=== PATIENT | female | born 1980 | race African-American/Black ===

== ENCOUNTER 2017-02-07 20:37 | Emergency (ER) | payer OTHER ==
[2017-02-07 20:43] VITALS: BP 119/75; PULSE 85; TEMP 97.9; BMI 39.8
--- NOTE | 2017-02-07 21:26 | PDOC ---
History of Present Illness <Pratima Paul - Last Filed: 02/07/17 23:29> - History of Present Illness Initial Comments: 02/07/17 23:52 CC: "I need you to check out my blood for clots" Patient is a 36 y.o. female with a PMH of PE (2015) and morbid obesity who presents to our facility with a c/o of R sided mid clavicular pain (pressure, 10 /10) and R back pain (localized over the area of the trapezius muscle, pressure- like 10/10). Patient notes this pain is similar to the pain she experienced during her PE in 2016. <Gloria Helms - Last Filed: 02/07/17 23:58> - General Chief Complaint: Back Pain Stated Complaint: BACK PAIN Time Seen by Provider: 02/07/17 21:19 Past History <Pratima Paul - Last Filed: 02/07/17 23:29> - Past Medical History Anemia: Yes Asthma: No Cancer: No Cardiac Disorders: No Diabetes: No HTN: No Seizures: No Thyroid Disease: No Other medical history: Pulmonary [place] 10/2015 - Psycho/Social/Smoking Cessation Hx Anxiety: No Suicidal Ideation: No Smoking History: Never smoked Have you smoked in the past 12 months: Yes If you are a former smoker, when did you quit?: 2016 Hx Alcohol Use: No Drug/Substance Use Hx: No Substance Use Type: None Hx Substance Use Treatment: No <Gloria Helms - Last Filed: 02/07/17 23:58> - Past Medical History Allergies/Adverse Reactions: Allergies Allergy/AdvReac Type Severity Reaction Status Date / Time No Known Allergies Allergy Verified 02/07/17 20:42 Home Medications: Ambulatory Orders Warfarin Na [Coumadin -] 10 mg GT DAILY #20 tablet 12/12/15 Review of Systems - Review of Systems Cardiac (ROS): Yes: Chest Pain All Other Systems: Reviewed and Negative <Glorai Helms - Last Filed: 02/07/17 23:58> *Physical Exam - Vital Signs Last Vital Signs Temp Pulse Resp BP Pulse Ox 97.9 F 85 18 119/75 98 02/07/17 20:38 02/07/17 20:38 02/07/17 20:38 02/07/17 20:38 02/07/17 20:38 <Pratima Paul - Last Filed: 02/07/17 23:29> - Vital Signs Last Vital Signs Temp Pulse Resp BP Pulse Ox 97.9 F 85 18 119/75 98 02/07/17 20:38 02/07/17 20:38 02/07/17 20:38 02/07/17 20:38 02/07/17 20:38 <Gloria Helms - Last Filed: 02/07/17 23:58> Heart Score/ECG Review #1 02/07/17 23:29 Normal sinus rhythm at 76 Abnormal ECG but no changes since 05/2016 Abnormal with deeply inverted T waves <Pratima Paul - Last Filed: 02/07/17 23:29> ED Treatment Course - LABORATORY CBC & Chemistry Diagram: 02/07/17 21:40 02/07/17 21:40 - ADDITIONAL ORDERS Additional order review: Laboratory Results 02/07/17 02/07/17 02/07/17 21:49 21:40 21:40 INR 3.00 H D-Dimer Sodium 137 Potassium 4.2 Chloride 103 Carbon Dioxide 29 Anion Gap 5 L BUN 10 Creatinine 0.8 Random Glucose 87 Calcium 8.3 L Serum , Qual Negative 02/07/17 21:40 INR D-Dimer < 200 Sodium Potassium Chloride Carbon Dioxide Anion Gap BUN Creatinine Random Glucose Calcium Serum , Qual 02/07/17 21:40 RBC 4.51 MCV 85.3 MCHC 32.8 RDW 15.2 MPV 9.5 Neutrophils % 39.5 L Lymphocytes % 45.0 H Monocytes % 11.5 H Eosinophils % 2.8 Basophils % 1.2 <Pratima Paul - Last Filed: 02/07/17 23:29> - LABORATORY CBC & Chemistry Diagram: 02/07/17 21:40 02/07/17 21:40 <Gloria Helms - Last Filed: 02/07/17 23:58> Medical Decision Making - Medical Decision Making 02/07/17 23:56 As patient has a h/o PE, D-Dimer was ordered as was INR (patient on Coumadin). As D-Dimer was negative however patient had a number of risk factors for PE including a h/o of PE and morbid obesity, however as her PE was not associated with , CXR was ordered prior to CTA. Patient was signed out to Dr. Fierro. <Golria Helms - Last Filed: 02/07/17 23:58>
[2017-02-07 21:52] LABS: BASOPHIL 1.2 % (0-2.0); EOSINOPHIL 2.8 % (0-4.5); MCHC 32.8 g/dl (32.0-36.0); MEAN CELL VOLUME 85.3 fl (80-96); MEAN PLT VOLUME 9.5 fl (7.5-11.1); NEUTROPHILS 39.5 % (42.8-82.8); PLATELET COUNT 171 K/MM3 (134-434); RDW 15.2 % (11.6-15.6); WHITE BLOOD COUNT 3.7 K/mm3 (4.0-10.0)
[2017-02-07 22:07] LABS: ANION GAP 5 (8-16); CALCIUM 8.3 mg/dL (8.5-10.1); CO2 29 mmol/L (21-32); CREATININE 0.8 mg/dL (0.55-1.02); GLUCOSE,RANDOM 87 mg/dL (74-106)
[2017-02-07 23:25] LABS: PROTHROMBIN TIME (PATIENT) 33.8 SEC (9.98-11.88)
--- NOTE | 2017-02-07 23:53 | PDOC ---
*Physical Exam - Vital Signs Last Vital Signs Temp Pulse Resp BP Pulse Ox 97.9 F 85 18 119/75 98 02/07/17 20:38 02/07/17 20:38 02/07/17 20:38 02/07/17 20:38 02/07/17 20:38 - Physical Exam Comments: 02/08/17 00:46 General Appearance: Nourished, Obese. No Apparent Distress HEENT: No Pharyngeal Erythema, Tonsillar Exudate, Tonsillar Erythema Respiratory/Chest: Lungs Clear, Normal Breath Sounds. No Crackles, Rales, Rhonchi, Wheezing Cardiovascular: Regular Rhythm, Regular Rate. No Murmur, Gallop/S3, Gallop/S4 Gastrointestinal/Abdominal: Normal Bowel Sounds, Soft. No Guarding, Rebound, Tenderness Integumentary: Normal Color, Dry, Warm Neurologic: Fully Oriented, Alert, Normal Mood/Affect, Normal Response <Dontae Fierro - Last Filed: 02/08/17 00:40> - Vital Signs Last Vital Signs Temp Pulse Resp BP Pulse Ox 97.9 F 85 18 119/75 98 02/07/17 20:38 02/07/17 20:38 02/07/17 20:38 02/07/17 20:38 02/07/17 20:38 <Isamar Alexandre - Last Filed: 02/08/17 02:31> ED Treatment Course - LABORATORY CBC & Chemistry Diagram: 02/07/17 21:40 02/07/17 21:40 - ADDITIONAL ORDERS Additional order review: Laboratory Results 02/07/17 02/07/17 02/07/17 21:49 21:40 21:40 INR 3.00 H D-Dimer Sodium 137 Potassium 4.2 Chloride 103 Carbon Dioxide 29 Anion Gap 5 L BUN 10 Creatinine 0.8 Random Glucose 87 Calcium 8.3 L Serum , Qual Negative 02/07/17 21:40 INR D-Dimer < 200 Sodium Potassium Chloride Carbon Dioxide Anion Gap BUN Creatinine Random Glucose Calcium Serum , Qual 02/07/17 21:40 RBC 4.51 MCV 85.3 MCHC 32.8 RDW 15.2 MPV 9.5 Neutrophils % 39.5 L Lymphocytes % 45.0 H Monocytes % 11.5 H Eosinophils % 2.8 Basophils % 1.2 <Dontae Fierro - Last Filed: 02/08/17 00:40> - LABORATORY CBC & Chemistry Diagram: 02/07/17 21:40 02/07/17 21:40 - ADDITIONAL ORDERS Additional order review: Laboratory Results 02/07/17 02/07/17 02/07/17 21:49 21:40 21:40 INR 3.00 H D-Dimer Sodium 137 Potassium 4.2 Chloride 103 Carbon Dioxide 29 Anion Gap 5 L BUN 10 Creatinine 0.8 Random Glucose 87 Calcium 8.3 L Serum , Qual Negative 02/07/17 21:40 INR D-Dimer < 200 Sodium Potassium Chloride Carbon Dioxide Anion Gap BUN Creatinine Random Glucose Calcium Serum , Qual 02/07/17 21:40 RBC 4.51 MCV 85.3 MCHC 32.8 RDW 15.2 MPV 9.5 Neutrophils % 39.5 L Lymphocytes % 45.0 H Monocytes % 11.5 H Eosinophils % 2.8 Basophils % 1.2 <Isamar Alexandre - Last Filed: 02/08/17 02:31> Progress Note - Progress Note Progress Note: Received sign-out from Dr. eHlms. Patient is a stable 36 year old female with a history of PE in 2016 who presents with chest pain similar to her previous presentation with PE. Patient reports upper right chest pain and upper right back pain similar to the pain she presented with one year ago with her previous PE. Work up has been negative thus far with a negative d-dimer. Patient is on warfarin and IRN is pending. Patient to undergo chest radiograph for evaluation given multiple risk factors. If chest radiograph is negative, the patient can be discharged home. <Dontae Fierro - Last Filed: 02/08/17 00:40> Medical Decision Making - Medical Decision Making 02/08/17 00:44 Patient's INR is 3 which is expected on Warfarin. Patient's chest radiograph has no obvious signs of PE or pneumonia and with a negative d-dimer we feel comfortable with discharging her home with follow up with a PCP. We discussed the results with the patient and she is agreeable with the plan. <Dontae Fierro - Last Filed: 02/08/17 00:40> *DC/Admit/Observation/Transfer - Attestations Physician Attestion: 02/08/17 00:44 I, Dr. Dontae Fierro, attest that this document has been prepared under my direction and personally reviewed by me in its entirety. I further attest, that it accurately reflects all work, treatment, procedures and medical decision -making performed by me. <Dontae Fierro - Last Filed: 02/08/17 00:40> <Isamar Alexandre - Last Filed: 02/08/17 02:31> Diagnosis at time of Disposition: Back pain Qualifiers: Back pain location: back pain in other location Chronicity: unspecified Qualified Code(s): M54.89 - Other dorsalgia - Discharge Dispostion Disposition: HOME Condition at time of disposition: Improved - Referrals Referrals: Hussein Gonsalez MD [Staff Physician] - Molly Campbell [Staff Physician] - Sal Ribera MD [Staff Physician] - - Patient Instructions Printed Discharge Instructions: DI for Thoracic Back Pain Additional Instructions: Please return to the ER if you experience worsening symptoms including worsening chest pain, shortness of breath, fevers, or chills. Please call one of provided numbers to establish care with a primary care provider and follow up with them regarding your ER visit. Attending Attestation - Resident Resident Name: Gloria Helms - HPI HPI: 02/08/17 02:26 36 yo female has had shortness of breath with exertion. She has a h/o PE in November 2015 and is on coumadin. Not hypoxic ,no tachycardia ,no fever - Physicial Exam PE: 02/08/17 02:27 tall 36 yo female with sob .No resp distress,no tachypnea HEENT wnl lungs cta b/l cvr [id number] abd protuberant,soft ext no swelling neuro axox3, ambulatory - Medical Decision Making 02/08/17 02:29 preg test negative ,cxr no infiltrates, negative d dimer,labs wnl. ekh nsr. INR=3.00 /pt discharged home <Isamar Alexandre - Last Filed: 02/08/17 02:31>
--- NOTE | 2017-02-08 10:31 | EKG ---
Test Reason : Blood Pressure : / mmHG Vent. Rate : 076 BPM Atrial Rate : 076 BPM P-R Int : 150 ms QRS Dur : 082 ms QT Int : 388 ms P-R-T Axes : 040 026 023 degrees QTc Int : 436 ms NORMAL SINUS RHYTHM CANNOT RULE OUT ANTERIOR INFARCT , AGE UNDETERMINED ABNORMAL ECG WHEN COMPARED WITH ECG OF 20-MAY-2016 11:32, NO SIGNIFICANT CHANGE WAS FOUND Confirmed by ARLETTE CERVANTES MD ([id number]) on 02/08/2017 10:31:32 AM Referred By: Confirmed By:ARLETTE CERVANTES MD
== END 2017-02-08 00:52 | disposition home or self-care (01) ==
LOC: JER 20:37
DX: M54.89 Other dorsalgia (principal); Z86.711 Personal history of pulmonary embolism; Z79.01 Long term (current) use of anticoagulants
CPT/HCPCS: 36415; 71020-TC; 80048; 84703; 85025; 85379; 85610; 93005; 93010; 99282-25

== ENCOUNTER 2017-03-13 20:02 | Emergency (ER) | payer OTHER ==
[2017-03-13 20:11] VITALS: BP 132/89; PULSE 102; TEMP 99.5; BMI 40.4
[2017-03-13] MEDS ORDERED: METOCLOPRAMIDE HCL INJECTION 10 MG/2 ML VIAL ONE (20:28)
--- NOTE | 2017-03-13 20:28 | PDOC ---
History of Present Illness - General History Source: Patient Exam Limitations: No Limitations - History of Present Illness Initial Comments: 03/13/17 23:22 36-year-old female with a history of migraines, vertical resents to the emergency department complaining of a frontal bandlike 8/10 intermittent discomfort with light sensitivity but denies nausea/vomiting, fever/chills, nausea sensitivity, neck pains, back pains, chest pain, shortness of breath, abdominal pains, flank pains, extremity numbness or tingling sensation. Patient states the pain is alleviated at rest in a dark room and there are no exacerbating factors. Patient says this is not her worst migraine episode and she has not tried any [id number] medication to alleviate her pain. No recent travels Timing/Duration: reports: other (1 day) Associated Symptoms: reports: denies symptoms <Raisa Lee - Last Filed: 03/13/17 23:22> <Nayeli Wall - Last Filed: 03/15/17 00:48> - General Chief Complaint: Headache Stated Complaint: FEVER/HEADACHE/NUMBNESS IN ARM Time Seen by Provider: 03/13/17 20:23 Past History - Past Medical History Anemia: Yes Asthma: No Cancer: No Cardiac Disorders: No Diabetes: No HTN: No Seizures: No Thyroid Disease: No Other medical history: PE, vertigo - Psycho/Social/Smoking Cessation Hx Anxiety: No Suicidal Ideation: No Smoking History: Never smoked Have you smoked in the past 12 months: No If you are a former smoker, when did you quit?: 2016 Information on smoking cessation initiated: No Hx Alcohol Use: No Drug/Substance Use Hx: No Substance Use Type: None Hx Substance Use Treatment: No <Raisa Lee - Last Filed: 03/13/17 23:22> <Nayeli Wall - Last Filed: 03/15/17 00:48> - Past Medical History Allergies/Adverse Reactions: Allergies Allergy/AdvReac Type Severity Reaction Status Date / Time No Known Allergies Allergy Verified 03/13/17 20:07 Home Medications: Ambulatory Orders Warfarin Na [Coumadin -] 10 mg PO DAILY 03/14/17 Review of Systems - Review of Systems Able to Perform ROS?: Yes Comments:: 03/13/17 23:22 CONSTITUTIONAL: Absent: fever, chills, diaphoresis, generalized weakness, malaise, loss of appetite HEENT: Absent: rhinorrhea, nasal congestion, throat pain, throat swelling, difficulty swallowing, mouth swelling, ear pain, eye pain, visual Changes CARDIOVASCULAR: Absent: chest pain, loss of consciousness, palpitations, irregular heart rate, peripheral edema RESPIRATORY: Absent: cough, shortness of breath, dyspnea with exertion, orthopnea, wheezing, stridor, hemoptysis GASTROINTESTINAL: Absent: abdominal pain, abdominal distension, nausea, vomiting, diarrhea, constipation, melena, hematochezia GENITOURINARY: Absent: dysuria, frequency, urgency, hesitancy, hematuria, flank pain, genital pain MUSCULOSKELETAL: Absent: myalgia, arthralgia, joint swelling SKIN: Absent: rash, itching, pallor HEMATOLOGIC/IMMUNOLOGIC: Absent: easy bleeding, easy bruising, lymphadenopathy, frequent infections ENDOCRINE: Absent: unexplained weight gain, unexplained weight loss, heat intolerance, cold intolerance NEUROLOGIC: Absent: headache, focal weakness or paresthesias, dizziness, unsteady gait, seizure, mental status changes, bladder or bowel incontinence PSYCHIATRIC: Absent: anxiety, depression, suicidal or homicidal ideation, hallucinations. Is the patient limited Togolese proficient: No <Raisa Lee - Last Filed: 03/13/17 23:22> *Physical Exam - Vital Signs Last Vital Signs Temp Pulse Resp BP Pulse Ox 99.5 F 102 H 20 132/89 97 03/13/17 20:08 03/13/17 20:08 03/13/17 20:08 03/13/17 20:08 03/13/17 20:08 - Physical Exam Comments: 03/13/17 23:22 GENERAL: Well developed, well nourished. Awake and alert. No acute distress. HEENT: Normocephalic, atraumatic. PERRLA, EOMI. No conjunctival pallor. Sclera are non- icteric. Moist mucous membranes. Oropharynx is clear. NECK: Supple. Full ROM. No JVD. Carotid pulses 2+ and symmetric, without bruits. No thyromegaly. No lymphadenopathy. CARDIOVASCULAR: Regular rate and rhythm. No murmurs, rubs, or gallops. Distal pulses are 2+ and symmetric. PULMONARY: No evidence of respiratory distress. Lungs clear to auscultation bilaterally. No wheezing, rales or rhonchi. ABDOMINAL: Soft. Non-tender. Non-distended. No rebound or guarding. No organomegaly. Normoactive bowel sounds. MUSCULOSKELETAL Normal range of motion at all joints. No bony deformities or tenderness. No CVA tenderness. EXTREMITIES: No cyanosis. No clubbing. No edema. No calf tenderness. SKIN: Warm and dry. Normal capillary refill. No rashes. No jaundice. NEUROLOGICAL: Alert, awake, appropriate. Cranial nerves 2-12 intact. No deficits to light touch and temperature in face, upper extremities and lower extremities. No motor deficits in the in face, upper extremities and lower extremities. Normoreflexic in the upper and lower extremities. Normal speech. Toes are down- going bilaterally. Gait is normal without ataxia. PSYCHIATRIC: Cooperative. Good eye contact. Appropriate mood and affect. <Raisa Lee - Last Filed: 03/13/17 23:22> - Vital Signs Last Vital Signs Temp Pulse Resp BP Pulse Ox 99.5 F 102 H 20 132/89 97 03/13/17 20:08 03/13/17 20:08 03/13/17 20:08 03/13/17 20:08 03/13/17 20:08 <Nayeli Wall - Last Filed: 03/15/17 00:48> ED Treatment Course - LABORATORY CBC & Chemistry Diagram: 03/13/17 20:25 03/13/17 20:25 <Raisa Lee - Last Filed: 03/13/17 23:22> - LABORATORY CBC & Chemistry Diagram: 03/13/17 20:25 03/13/17 20:25 - ADDITIONAL ORDERS Additional order review: 03/13/17 20:25 RBC 4.25 MCV 84.9 MCHC 33.2 RDW 15.3 MPV 8.6 Neutrophils % 61.5 D Lymphocytes % 26.4 D Monocytes % 10.7 H Eosinophils % 0.9 Basophils % 0.5 - Medications Given in the ED: ED Medications Discontinued Medications Generic Name Dose Route Start Last Admin Trade Name Freq PRN Reason Stop Dose Admin Sodium Chloride 1,000 mls @ 1,000 mls/hr 03/13/17 20:29 03/13/17 20:49 Normal Saline - IV 03/13/17 21:28 1,000 mls/hr ASDIR STA Administration Metoclopramide HCl 10 mg 03/13/17 20:29 03/13/17 20:49 Reglan Injection - IVPB 03/13/17 20:30 10 mg ONCE ONE Administration <Nayeli Wall - Last Filed: 03/15/17 00:48> *DC/Admit/Observation/Transfer - Discharge Dispostion Admit: No <Raisa Lee - Last Filed: 03/13/17 23:22> - Attestations Physician Attestion: I reviewed the case with the mid-level practitioner and agree with the mid- level practitioner's assessment, diagnosis and disposition. <Nayeli Wall - Last Filed: 03/15/17 00:48> Diagnosis at time of Disposition: Headache Qualifiers: Headache type: tension-type Headache chronicity pattern: acute headache Intractability: not intractable Qualified Code(s): G44.209 - Tension-type headache, unspecified, not intractable - Discharge Dispostion Disposition: HOME Condition at time of disposition: Stable - Referrals Referrals: Frandy Villatoro MD [Primary Care Provider] - Hussein Jamil MD [Staff Physician] - - Patient Instructions Printed Discharge Instructions: DI for Headache Additional Instructions: Rest Follow up with the neurologist or your physician this week. Tylenol alternating with Motrin as needed for pain Return to the ER for severe/persistent/worsening symptoms
[2017-03-13] MEDS ORDERED: SODIUM CHLORIDE 1,000 ML IV STA (20:29)
[2017-03-13] MEDS ORDERED: METOCLOPRAMIDE HCL INJECTION 10 MG/2 ML VIAL IVPB ONE (20:29)
[2017-03-13 20:34] LABS: BASOPHIL 0.5 % (0-2.0); EOSINOPHIL 0.9 % (0-4.5); MCH 28.2 pg (25.7-33.7); MCHC 33.2 g/dl (32.0-36.0); MEAN CELL VOLUME 84.9 fl (80-96); MEAN PLT VOLUME 8.6 fl (7.5-11.1); NEUTROPHILS 61.5 % (42.8-82.8); PLATELET COUNT 203 K/MM3 (134-434); RDW 15.3 % (11.6-15.6); WHITE BLOOD COUNT 6.9 K/mm3 (4.0-10.0)
[2017-03-13 21:01] LABS: ALBUMIN 3.5 g/dl (3.4-5.0); ALK PHOS 90 U/L (45-117); ANION GAP 5 (8-16); BILIRUBIN,TOTAL 0.3 mg/dL (0.2-1.0); CALCIUM 8.5 mg/dL (8.5-10.1); CO2 29 mmol/L (21-32); CREATININE 0.9 mg/dL (0.55-1.02); GLUCOSE,RANDOM 91 mg/dL (74-106); SGOT/AST 17 U/L (15-37); SGPT/ALT 25 U/L (12-78)
== END 2017-03-13 23:39 | disposition home or self-care (01) ==
LOC: JER 20:02
PROC: 3E033GC Introduction of Other Therapeutic Substance into Peripheral Vein, Percutaneous Approach (ICD-10-PCS; principal; 2017-03-13)
PROC: 3E0337Z Introduction of Electrolytic and Water Balance Substance into Peripheral Vein, Percutaneous Approach (ICD-10-PCS; 2017-03-13)
DX: G44.209 Tension-type headache, unspecified, not intractable (principal); D64.9 Anemia, unspecified; Z87.891 Personal history of nicotine dependence
CPT/HCPCS: 36415; 80053; 84703; 85025; 99282-25

== ENCOUNTER 2018-03-11 07:24 | Emergency (ER) | payer OTHER ==
[2018-03-11 07:40] VITALS: BMI 40.8
[2018-03-11] MEDS ORDERED: SODIUM CHLORIDE 1,000 ML IV STA (07:51)
--- NOTE | 2018-03-11 07:56 | PDOC ---
History of Present Illness - General History Source: Patient - History of Present Illness Timing/Duration: other (this am) Associated Symptoms: denies: chest pain, cough, fever/chills, headaches, nausea/ vomiting, shortness of breath, weakness <Simone Dodson - Last Filed: 03/11/18 11:55> <Brady Rodríguez - Last Filed: 03/13/18 16:15> - General Chief Complaint: Vomiting Blood Stated Complaint: REACTION TO MEDICATION Time Seen by Provider: 03/11/18 07:47 Past History - Past Medical History Anemia: Yes Asthma: No Cancer: No Cardiac Disorders: No COPD: No DVT: (PE-ON XARELTO) Diabetes: No HTN: No Seizures: No Thyroid Disease: No - Suicide/Smoking/Psychosocial Hx Smoking History: Former smoker Have you smoked in the past 12 months: No If you are a former smoker, when did you quit?: 2016 Information on smoking cessation initiated: No Hx Alcohol Use: No Drug/Substance Use Hx: No Substance Use Type: None Hx Substance Use Treatment: No <Simone Dodson - Last Filed: 03/11/18 11:55> <Brady Rodríguez - Last Filed: 03/13/18 16:15> - Past Medical History Allergies/Adverse Reactions: Allergies Allergy/AdvReac Type Severity Reaction Status Date / Time No Known Allergies Allergy Verified 03/11/18 07:35 Home Medications: Ambulatory Orders Pantoprazole Sodium [Protonix] 40 mg PO BID #30 tablet. 03/11/18 Rivaroxaban [Xarelto -] 20 mg PO HS 03/11/18 Review of Systems - Review of Systems Constitutional: No: Chills, Fever Respiratory: No: Cough, Shortness of Breath Cardiac (ROS): No: Chest Pain, Palpitations, Syncope ABD/GI: No: Constipated, Diarrhea, Nausea, Rectal Bleeding, Vomiting, Abdominal cramping, Tarry Stools <Simone Dodson - Last Filed: 03/11/18 11:55> *Physical Exam - Vital Signs Last Vital Signs Temp Pulse Resp BP Pulse Ox 98.7 F 85 19 145/91 97 03/11/18 07:35 03/11/18 07:35 03/11/18 07:35 03/11/18 07:35 03/11/18 07:35 - Physical Exam General Appearance: Yes: Appropriately Dressed. No: Apparent Distress HEENT: positive: Normal Voice, Pharynx Normal, Other (no oral lesions/active bleed) Neck: positive: Supple Respiratory/Chest: positive: Lungs Clear, Normal Breath Sounds. negative: Respiratory Distress Cardiovascular: positive: Regular Rate, S1, S2 Gastrointestinal/Abdominal: positive: Soft. negative: Tender Integumentary: positive: Dry, Warm Neurologic: positive: Fully Oriented, Alert, Normal Mood/Affect <Simone Dodson - Last Filed: 03/11/18 11:55> - Vital Signs Last Vital Signs Temp Pulse Resp BP Pulse Ox 99 F 72 16 127/58 98 03/11/18 10:22 03/11/18 10:22 03/11/18 10:22 03/11/18 10:22 03/11/18 10:22 <Brady Rodríguez - Last Filed: 03/13/18 16:15> ED Treatment Course - LABORATORY CBC & Chemistry Diagram: 03/11/18 08:15 03/11/18 08:15 <Simone Dodson - Last Filed: 03/11/18 11:55> - LABORATORY CBC & Chemistry Diagram: 03/11/18 08:15 03/11/18 08:15 - ADDITIONAL ORDERS Additional order review: 03/11/18 08:15 RBC 4.30 MCV 85.5 MCHC 33.7 RDW 14.7 MPV 9.0 Neutrophils % 31.7 L D Lymphocytes % 53.8 H D Monocytes % 10.0 Eosinophils % 4.2 D Basophils % 0.3 - Medications Given in the ED: ED Medications Discontinued Medications Generic Name Dose Route Start Last Admin Trade Name Freq PRN Reason Stop Dose Admin Sodium Chloride 1,000 mls @ 1,000 mls/hr 03/11/18 07:51 03/11/18 08:28 Normal Saline - IV 03/11/18 08:50 1,000 mls/hr ASDIR STA Administration Pantoprazole Sodium 40 mg 03/11/18 09:37 03/11/18 09:38 Protonix Iv IVPUSH 03/11/18 09:38 40 mg ONCE ONE Administration <Brady Rodríguez - Last Filed: 03/13/18 16:15> Medical Decision Making - Medical Decision Making 03/11/18 07:52 37-year-old female, history of unprovoked PE 2 years ago, unclear etiology on workup per patient, was on coumadin until 3 days ago and started on xarelto yesterday, now presents with "spitting up blood" this a.m. Patient states she was in her usual state of health until this a.m. when she woke up this morning and notice blood on her left arm, after which she found herself spitting up blood several times approximately a teaspoon full each time. No clots. Now feels dizzy. No epistaxis,cough, hemoptysis, sob, CP, hematemesis, abdominal pain, BRBPR, melena or ZALDIVAR. No recent dental procedures. Patient states she was told her INR was 4, 3 days ago See exam Spitting up blood this am Took last dose coumadin 3 days ago w/ INR of 4 then Now on xarelto since yesterday Stable in ER w/ unremarkable exam ?GI course vs pulm vs dental (though no oral sores/lesions/recent dental procedure) -IVF -labs including INR/T&S -CXR -dispo pending 03/11/18 09:54 INR 4.21. No further bleeding in ED. Pt remains stable. Case discussed with Dr. Plaza, covering MD for Dr Villatoro, who recommends that patient hold xarelto over the weekend and walk into office at 10 AM on Wednesday. Wants patient to receive a dose of IV Protonix here in ED and discharged on same twice a day. Does not recommend vitamin K at this time <Simone Dodson - Last Filed: 03/11/18 11:55> - Medical Decision Making 03/13/18 16:15 The patient was seen and evaluated in conjunction with JOSE Dodson under my direct supervision, ancillary studies were reviewed. I agree with the plan as outlined by JOSE Dodson . <Brady Rodríguez - Last Filed: 03/13/18 16:15> *DC/Admit/Observation/Transfer <Simone Dodson - Last Filed: 03/11/18 11:55> <Brady Rodríguez - Last Filed: 03/13/18 16:15> Diagnosis at time of Disposition: Spitting up blood - Discharge Dispostion Disposition: HOME Condition at time of disposition: Improved - Prescriptions Prescriptions: Pantoprazole Sodium [Protonix] 40 mg PO BID #30 tablet.dr - Referrals Referrals: Frandy Villatoro MD [Primary Care Provider] - - Patient Instructions Printed Discharge Instructions: Gastrointestinal Bleeding Additional Instructions: Please hold Xarelto over the weekend and walk into Dr. Plaza's office at 10 AM on Wednesday. Take Protonix as directed. If bleeding reoccurs, return to ER immediately
[2018-03-11 08:32] LABS: BASO % 0.3 % (0-2.0); EOS % 4.2 % (0-4.5); HEMATOCRIT 36.7 % (32.4-45.2); HEMOGLOBIN 12.4 GM/dL (10.7-15.3); LYMPH % 53.8 % (8-40); MCH 28.9 pg (25.7-33.7); MCHC 33.7 g/dl (32.0-36.0); MEAN CELL VOLUME 85.5 fl (80-96); NEUT % 31.7 % (42.8-82.8); PLATELET COUNT 203 K/MM3 (134-434); RDW 14.7 % (11.6-15.6); WHITE BLOOD COUNT 2.8 K/mm3 (4.0-10.0)
[2018-03-11 08:44] LABS: PROTHROMBIN TIME (PATIENT) 47.6 SEC (9.7-13.0)
[2018-03-11 08:51] LABS: INR 4.21 (0.83-1.09)
[2018-03-11 09:09] LABS: ALBUMIN 3.6 g/dl (3.4-5.0); ANION GAP 11 (8-16); BILIRUBIN,TOTAL 0.3 mg/dL (0.2-1.0); BLOOD UREA NITROGEN 10 mg/dL (7-18); CALCIUM 8.7 mg/dL (8.5-10.1); CHLORIDE 106 mmol/L (98-107); CO2 25 mmol/L (21-32); CREATININE 0.9 mg/dL (0.55-1.02); GLUCOSE,RANDOM 97 mg/dL (74-106); POTASSIUM 3.9 mmol/L (3.5-5.1); SGOT/AST 20 U/L (15-37); SGPT/ALT 32 U/L (12-78); SODIUM 142 mmol/L (136-145)
[2018-03-11 09:10] LABS: ALK PHOS 82 U/L (45-117)
[2018-03-11] MEDS ORDERED: PANTOPRAZOLE SODIUM 40 MG VIAL IVPUSH ONE (09:37)
[2018-03-11] MEDS ORDERED: PANTOPRAZOLE SODIUM 40 MG/100 ML BAG IVPB ONE (09:40)
[2018-03-11 10:24] VITALS: BP 127/58; PULSE 72; TEMP 99
== END 2018-03-11 12:05 | disposition home or self-care (01) ==
LOC: JER 07:24
PROC: 3E033GC Introduction of Other Therapeutic Substance into Peripheral Vein, Percutaneous Approach (ICD-10-PCS; principal; 2018-03-11)
PROC: 3E0337Z Introduction of Electrolytic and Water Balance Substance into Peripheral Vein, Percutaneous Approach (ICD-10-PCS; 2018-03-11)
DX: R04.2 Hemoptysis (principal); D64.9 Anemia, unspecified; Z86.711 Personal history of pulmonary embolism; Z87.891 Personal history of nicotine dependence; Z79.01 Long term (current) use of anticoagulants
CPT/HCPCS: 36415; 71046-TC-FY; 80053; 83690; 84703; 85025; 85610; 86850; 86900; 86901; 99283-25; J7030

== ENCOUNTER 2021-04-15 13:23 | Emergency (ER) | payer OTHER ==
[2021-04-15 13:57] VITALS: BMI 41.4
[2021-04-15 16:32] LABS: INR 1.09 (0.83-1.09); PROTHROMBIN TIME (PATIENT) 13.4 SEC (9.7-13.0)
[2021-04-15 16:34] LABS: ACTIVATED PTT 28.4 SECONDS (25.2-36.5)
[2021-04-15 16:43] LABS: CHLORIDE 107 mmol/L (98-107); SODIUM 134 mmol/L (136-145)
[2021-04-15 16:45] LABS: BLOOD UREA NITROGEN 6.8 mg/dL (7-18); CO2 27 mmol/L (21-32); GLUCOSE,RANDOM 77 mg/dL (74-106)
[2021-04-15 16:48] LABS: CREATININE 0.9 mg/dL (0.55-1.3)
[2021-04-15 16:51] LABS: BILIRUBIN,TOTAL 0.3 mg/dL (0.2-1); TOT PROT 7.4 g/dl (6.4-8.2)
[2021-04-15 16:52] LABS: ALK PHOS 62 U/L (45-117)
[2021-04-15 16:54] LABS: N-TERMINAL BNP 70.2 pg/ml (5-125)
[2021-04-15 17:19] LABS: ANION GAP 0 MMOL/L (8-16); SGOT/AST 86 U/L (15-37); SGPT/ALT 47 U/L (13-61)
[2021-04-15] MEDS ORDERED: CASIRIVIMAB/IMDEVIMAB 10 ML in SODIUM CHLORIDE 100 ML IVPB ONE (20:05)
[2021-04-15 22:20] LABS: BASO % 0.7 % (0-2.0); EOS % 0.5 % (0-4.5); HEMATOCRIT 35.2 % (32.4-45.2); HEMOGLOBIN 11.3 GM/dL (10.7-15.3); LYMPH % 36.7 % (8-40); MCH 29.5 pg (25.7-33.7); MEAN CELL VOLUME 92.1 fl (80-96); MEAN PLT VOLUME 9.8 fl (7.5-11.1); MONO % 12.9 % (3.8-10.2); NEUT % 49.2 % (42.8-82.8); PLATELET COUNT 180 10^3/uL (134-434); RBC 3.82 M/mm3 (3.60-5.2); RDW 16.9 % (11.6-15.6); WHITE BLOOD COUNT 3.2 K/mm3 (4.0-10.0)
[2021-04-15 23:18] VITALS: BP 119/76; PULSE 77
[2021-04-15 23:19] VITALS: TEMP 101
== END 2021-04-15 23:32 | disposition home or self-care (01) ==
LOC: JCOVINFU 13:23 → JER 13:23
DX: U07.1 COVID-19 (principal); M71.20 Synovial cyst of popliteal space [Baker], unspecified knee
CPT/HCPCS: 36415; 71045-TC-FY; 71275-TC; 80053; 82550; 82553; 83880; 84132; 84484; 84702; 85025; 85610; 85730; 93970-TC; 99285-25; M0240; Q0240; Q9967

== ENCOUNTER 2021-10-21 15:54 | Emergency (ER) | payer OTHER ==
[2021-10-21 16:08] VITALS: BP 119/81; PULSE 80; BMI 38.2
[2021-10-21 16:17] VITALS: TEMP 98
[2021-10-21] MEDS ORDERED: SODIUM CHLORIDE 1,000 ML IV STA (16:59)
[2021-10-21] MEDS ORDERED: ONDANSETRON 4 MG/2 ML VIAL IVPUSH ONE (17:05)
[2021-10-21] MEDS ORDERED: ACETAMINOPHEN 1000 MG/100 ML BAG IVPB ONE (17:06)
[2021-10-21] MEDS ORDERED: ONDANSETRON 4 MG/2 ML VIAL ONE (17:25)
[2021-10-21] MEDS ORDERED: ACETAMINOPHEN INJECTION 100 ML IVPB ONE (17:25)
[2021-10-21 18:12] LABS: BASO % 0.7 % (0-2.0); EOS % 1.9 % (0-4.5); HEMATOCRIT 39.9 % (32.4-45.2); HEMOGLOBIN 13.2 GM/dL (10.7-15.3); LYMPH % 33.5 % (8-40); MCH 28.9 pg (25.7-33.7); MEAN CELL VOLUME 87.7 fl (80-96); MEAN PLT VOLUME 9.5 fl (7.5-11.1); MONO % 9.9 % (3.8-10.2); PLATELET COUNT 253 10^3/uL (134-434); RBC 4.55 M/mm3 (3.60-5.2); RDW 14.7 % (11.6-15.6); WHITE BLOOD COUNT 3.3 K/mm3 (4.0-10.0)
[2021-10-21 18:25] LABS: EPI CELLS >36 /uL (0-25.1); HYALINE CASTS 2 /uL (0-3.1); URINE APPEARANCE CLOUDY; URINE BACTERIA 2179 /uL (0-1359); URINE BILIRUBIN NEGATIVE (NEGATIVE); URINE COLOR YELLOW; URINE GLUCOSE (UA) NEGATIVE (NEGATIVE); URINE KETONE NEGATIVE (NEGATIVE); URINE LEUK ESTERASE 3+ (NEGATIVE); URINE NITRITE NEGATIVE (NEGATIVE); URINE PROTEIN TRACE (NEGATIVE); URINE RBC 16 /uL (0-23.9); URINE WBC 2300 /uL (0-25.8)
[2021-10-21 18:27] LABS: HCG,QUALITATIVE URINE Negative
[2021-10-21 18:28] LABS: ALBUMIN 3.9 g/dl (3.4-5.0); CALCIUM 8.9 mg/dL (8.5-10.1)
[2021-10-21 18:32] LABS: CREATININE 0.9 mg/dL (0.55-1.3)
[2021-10-21 18:33] LABS: BILIRUBIN,TOTAL 0.3 mg/dL (0.2-1); TOT PROT 7.7 g/dl (6.4-8.2)
== END 2021-10-21 20:53 | disposition home or self-care (01) ==
LOC: JER 15:54
PROC: 3E0333Z Introduction of Anti-inflammatory into Peripheral Vein, Percutaneous Approach (ICD-10-PCS; principal; 2021-10-21)
PROC: 3E033GC Introduction of Other Therapeutic Substance into Peripheral Vein, Percutaneous Approach (ICD-10-PCS; 2021-10-21)
PROC: 3E0337Z Introduction of Electrolytic and Water Balance Substance into Peripheral Vein, Percutaneous Approach (ICD-10-PCS; 2021-10-21)
DX: N39.0 Urinary tract infection, site not specified (principal); R10.9 Unspecified abdominal pain
CPT/HCPCS: 36415; 71046-TC-FY; 71275-TC; 80053; 81003; 84484; 84703; 85025; 93005; 93010; 99285-25; Q9967

== ENCOUNTER 2021-12-02 23:37 | Emergency (ER) | payer OTHER ==
[2021-12-02 23:45] VITALS: BP 125/86; PULSE 125; BMI 37.2
[2021-12-02 23:46] VITALS: TEMP 99.7
[2021-12-03] MEDS ORDERED: METOCLOPRAMIDE HCL INJECTION 10 MG/2 ML VIAL IVPUSH ONE ×2 (00:01→00:19)
[2021-12-03] MEDS ORDERED: ACETAMINOPHEN 1000 MG/100 ML BAG IVPB ONE (00:01)
[2021-12-03] MEDS ORDERED: METOCLOPRAMIDE HCL INJECTION 10 MG/2 ML VIAL IM ONE (00:06)
[2021-12-03] MEDS ORDERED: ACETAMINOPHEN 325 MG TABLET (FP) PO ONE (00:06)
[2021-12-03] MEDS ORDERED: ACETAMINOPHEN INJECTION 100 ML IVPB ONE (00:11)
[2021-12-03] MEDS ORDERED: METOCLOPRAMIDE HCL INJECTION 10 MG/2 ML VIAL ONE (00:12)
== END 2021-12-03 01:59 | disposition home or self-care (01) ==
LOC: JER 23:37
PROC: 3E033GC Introduction of Other Therapeutic Substance into Peripheral Vein, Percutaneous Approach (ICD-10-PCS; principal; 2021-12-02)
DX: J06.9 Acute upper respiratory infection, unspecified (principal)
CPT/HCPCS: 87804; 93005; 93010; 96374; 96375; 99284-25; C9803-CS; U0003; U0005

== ENCOUNTER 2024-05-24 09:23 | Emergency (ER) | payer OTHER ==
[2024-05-24 09:35] VITALS: BMI 101.7
[2024-05-24 12:49] LABS: BASO % 0.3 % (0-2.0); EOS % 0.4 % (0-4.5); HEMATOCRIT 38.1 % (32.4-45.2); HEMOGLOBIN 12.9 GM/dL (10.7-15.3); LYMPH % 29.3 % (8-40); MCH 28.6 pg (25.7-33.7); MCHC 33.8 g/dl (32.0-36.0); MEAN CELL VOLUME 84.5 fl (80-96); MEAN PLT VOLUME 9.8 fl (7.5-11.1); MONO % 9.6 % (3.8-10.2); NEUT % 60.4 % (42.8-82.8); PLATELET COUNT 154 10^3/uL (134-434); RBC 4.51 M/mm3 (3.60-5.2); RDW 14.5 % (11.6-15.6); WHITE BLOOD COUNT 4.5 K/mm3 (4.0-10.0)
[2024-05-24 12:58] LABS: INR 1.13 (0.83-1.09); PROTHROMBIN TIME (PATIENT) 12.9 SEC (9.7-13.0)
[2024-05-24 13:09] LABS: POTASSIUM 3.7 mmol/L (3.5-5.1)
[2024-05-24 13:13] LABS: ALBUMIN 3.6 g/dl (3.4-5.0); CALCIUM 9.1 mg/dL (8.5-10.1); MAGNESIUM 2.3 mg/dL (1.8-2.4)
[2024-05-24 13:16] LABS: CREATININE 0.8 mg/dL (0.55-1.3)
[2024-05-24 13:17] LABS: BILIRUBIN,TOTAL 0.4 mg/dL (0.2-1)
[2024-05-24 13:18] LABS: TOT PROT 7.3 g/dl (6.4-8.2)
[2024-05-24 13:52] VITALS: BP 114/73; PULSE 99; TEMP 100.3
[2024-05-24 15:59] VITALS: RESP 98
== END 2024-05-24 16:45 | disposition home or self-care (01) ==
LOC: JER 09:23
DX: R05.9 Cough, unspecified (principal); R50.9 Fever, unspecified; R07.89 Other chest pain; R06.02 Shortness of breath; Z20.822 Contact with and (suspected) exposure to COVID-19
CPT/HCPCS: 0241U-QW; 36415; 71046-TC-FY; 71275-TC; 80053; 83735; 84484; 84703; 85025; 85379; 85610; 85730; 86850; 86900; 86901; 93005; 93010; 99285-25; Q9967